=== PATIENT | male | born 1960 | race Caucasian/White ===

== ENCOUNTER 2021-10-11 09:37 | Inpatient (IN) ==
[2021-10-11 10:42] LABS: Basophils % 0.5 %; Eosinophils # 0.1 K/mcL (0.0-0.6); Eosinophils % 1.9 %; Hematocrit 49.3 % (37.5-50.1); Hemoglobin 15.7 g/dL (12.9-16.9); Immature Granulocytes % 0.2 % (0-4); Lymphocytes # 1.3 K/mcL (0.6-4.6); Lymphocytes % 21.8 %; Mean Corpuscular HGB Conc 31.8 g/dL (31.6-35.5); Mean Corpuscular Hemoglobin 29.4 pg (28.0-33.3); Mean Corpuscular Volume 92.3 fL (83.0-100.0); Mean Platelet Volume 12.2 fL (9.4-12.4); Monocytes # 0.5 K/mcL (0.0-1.3); Monocytes % 8.3 %; Neutrophils # 4.2 K/mcL (1.6-8.9); Platelet Count 120 K/mcL (140-400); Red Blood Count 5.34 M/mcL (4.19-5.50); Red Cell Distribution Width 14.5 % (11.5-14.5); Segmented Neutrophils % 67.3 %; White Blood Count 6.2 K/mcL (4.3-11.1)
[2021-10-11 11:01] LABS: BUN/Creatinine Ratio 23 (6-26); Blood Urea Nitrogen 26 mg/dL (8-23); Calcium 8.7 mg/dL (8.6-10.3); Carbon Dioxide 27 mEq/L (23-29); Chloride 105 mEq/L (98-107); Glucose 146 mg/dL (70-105); Osmolality,Calculated 299 (280-300); Potassium 3.9 mEq/L (3.5-5.1); Sodium 141 mEq/L (136-145); eGFR For African Americans > 60 (> 60); eGFR For Non-African Americans > 60 (> 60)
[2021-10-11 11:09] LABS: Troponin I 0.11 ng/mL (< 0.04)
[2021-10-11] MEDS ORDERED: Furosemide 40 MG/4 ML VIAL IVP ONE (11:09)
[2021-10-11] MEDS ORDERED: Iopamidol - 370 500 ML MLS IVP ONE (11:13)
[2021-10-11] MEDS ORDERED: Metoprolol XL (24 HR) Succ 25 MG TAB.ER.24H PO ONE (13:09)
[2021-10-11] MEDS ORDERED: Naloxone 0.4 MG/ML INJ IVP PRN (14:11)
[2021-10-11] MEDS ORDERED: *HR* Heparin 5,000 UNIT/ML VIAL IVP PRN ×2 (14:15)
[2021-10-11] MEDS ORDERED: *HR* Heparin 5,000 UNIT/ML VIAL IVP ONE (14:15)
[2021-10-11] MEDS ORDERED: Perflutren Lipid Microsphere 1.3 ML in 0.9 % Sodium Chloride 8.7 ML IVP PRN (14:16)
[2021-10-11] MEDS ORDERED: Aspirin 325 MG TABLET PO ONE (14:17)
[2021-10-11] MEDS ORDERED: *HR* Metoprolol 5 MG/5 ML VIAL IVP PRN (14:35)
[2021-10-11 16:56] LABS: Hematocrit 49.6 % (37.5-50.1); Hemoglobin 15.7 g/dL (12.9-16.9); Mean Corpuscular HGB Conc 31.7 g/dL (31.6-35.5); Mean Corpuscular Hemoglobin 29.5 pg (28.0-33.3); Mean Corpuscular Volume 93.1 fL (83.0-100.0); Mean Platelet Volume 11.9 fL (9.4-12.4); Platelet Count 122 K/mcL (140-400); Red Blood Count 5.33 M/mcL (4.19-5.50); Red Cell Distribution Width 14.6 % (11.5-14.5); White Blood Count 7.3 K/mcL (4.3-11.1)
[2021-10-11] MEDS: Heparin 25,000UNIT/250ML 1/2NS 25,000 UNIT/250 ML IV.SOLN IVC SCH (16:56)
[2021-10-11] MEDS: Metoprolol XL (24 HR) Succ 25 MG TAB.ER.24H PO SCH (16:56)
[2021-10-11 17:04] LABS: Heparin anti-factor XA UFH < 0.04 IU/mL (0.30-0.70); INR 1.3; Prothrombin Time 14.9 Seconds (9.4-12.1)
[2021-10-11] MEDS: Furosemide 40 MG/4 ML VIAL IVP SCH (21:19)
[2021-10-12] MEDS: Metoprolol XL (24 HR) Succ 25 MG TAB.ER.24H PO SCH ×4 (00:40→23:51)
[2021-10-12 01:13] LABS: Hematocrit 46.9 % (37.5-50.1); Mean Corpuscular Hemoglobin 29.4 pg (28.0-33.3); Platelet Count 114 K/mcL (140-400); Red Cell Distribution Width 14.5 % (11.5-14.5); White Blood Count 6.3 K/mcL (4.3-11.1)
[2021-10-12 01:32] LABS: Alanine Aminotransferase 28 Units/L (7-52); Albumin 3.7 g/dL (3.5-5.7); Albumin/Globulin Ratio 1.7 (1.1-2.2); Alkaline Phosphatase 52 Units/L (34-104); Aspartate Amino Transferase 32 Units/L (13-39); BUN/Creatinine Ratio 20 (6-26); Bilirubin,Total 2.2 mg/dL (0.3-1.0); Blood Urea Nitrogen 24 mg/dL (8-23); Calcium 8.6 mg/dL (8.6-10.3); Carbon Dioxide 32 mEq/L (23-29); Chloride 101 mEq/L (98-107); Globulin 2.2 g/dL (2.4-3.5); Glucose 115 mg/dL (70-105); Magnesium 2.3 mg/dL (1.6-2.6); Osmolality,Calculated 295 (280-300); Phosphorous 4.3 mg/dL (2.7-4.5); Potassium 3.6 mEq/L (3.5-5.1); Sodium 140 mEq/L (136-145); Total Protein 5.9 g/dL (6.4-8.9); eGFR For African Americans > 60 (> 60); eGFR For Non-African Americans > 60 (> 60)
[2021-10-12] MEDS: *HR* Metoprolol 5 MG/5 ML VIAL IVP PRN ×4 (03:50→13:53)
[2021-10-12] MEDS: Furosemide 40 MG/4 ML VIAL IVP SCH ×2 (08:36→21:55)
[2021-10-12] MEDS: Aspirin 81 MG TAB.CHEW PO SCH (08:36)
[2021-10-12] MEDS ORDERED: Furosemide 40 MG/4 ML VIAL IVP SCH (09:00)
[2021-10-12] MEDS ORDERED: Amiodarone Premix 360 MG/200 ML BAG IVC ONE (10:33)
[2021-10-12] MEDS ORDERED: Amiodarone Premix 150 MG/100 ML BAG IVPB ONE (10:33)
[2021-10-12] MEDS: Heparin 25,000UNIT/250ML 1/2NS 25,000 UNIT/250 ML IV.SOLN IVC SCH (12:03)
[2021-10-12] MEDS: Amiodarone Premix 360 MG/200 ML BAG IVC SCH (16:29)
[2021-10-13] MEDS: Amiodarone Premix 360 MG/200 ML BAG IVC SCH (04:10)
[2021-10-13] MEDS: Heparin 25,000UNIT/250ML 1/2NS 25,000 UNIT/250 ML IV.SOLN IVC SCH (04:29)
[2021-10-13] MEDS: Metoprolol XL (24 HR) Succ 25 MG TAB.ER.24H PO SCH ×2 (08:38→20:31)
[2021-10-13] MEDS: Aspirin 81 MG TAB.CHEW PO SCH (08:38)
[2021-10-13] MEDS: Furosemide 40 MG/4 ML VIAL IVP SCH (08:38)
[2021-10-13] MEDS ORDERED: Lidocaine Viscous Oral Soln 15 ML SOLUTION MM PRN (10:59)
[2021-10-13] MEDS ORDERED: 0.9 % Sodium Chloride 500 ML IVC ONE (11:00)
[2021-10-13] MEDS ORDERED: *HR* Vasopressin 20 UNIT/ML VIAL ONE (11:35)
[2021-10-13] MEDS ORDERED: *HR* Rocuronium Bromide 50 MG/5 ML VIAL ONE (11:35)
[2021-10-13 11:41] LABS: Hematocrit 49.4 % (37.5-50.1); Hemoglobin 15.9 g/dL (12.9-16.9); Mean Corpuscular HGB Conc 32.2 g/dL (31.6-35.5); Mean Corpuscular Hemoglobin 29.4 pg (28.0-33.3); Mean Corpuscular Volume 91.5 fL (83.0-100.0); Mean Platelet Volume 12.5 fL (9.4-12.4); Platelet Count 122 K/mcL (140-400); Red Cell Distribution Width 14.8 % (11.5-14.5); White Blood Count 8.7 K/mcL (4.3-11.1)
[2021-10-13 11:59] LABS: Calcium 8.7 mg/dL (8.6-10.3); Potassium 3.8 mEq/L (3.5-5.1)
[2021-10-13] MEDS: Apixaban 5 MG TABLET PO SCH (20:30)
[2021-10-13] MEDS: *HR* Amiodarone 200 MG TABLET PO SCH (20:31)
[2021-10-14 01:52] LABS: Hematocrit 47.4 % (37.5-50.1); Hemoglobin 15.1 g/dL (12.9-16.9); Mean Corpuscular HGB Conc 31.9 g/dL (31.6-35.5); Mean Corpuscular Hemoglobin 29.2 pg (28.0-33.3); Mean Corpuscular Volume 91.7 fL (83.0-100.0); Mean Platelet Volume 12.1 fL (9.4-12.4); Platelet Count 145 K/mcL (140-400); Red Blood Count 5.17 M/mcL (4.19-5.50); Red Cell Distribution Width 14.9 % (11.5-14.5); White Blood Count 8.9 K/mcL (4.3-11.1)
[2021-10-14 02:16] LABS: Calcium 8.7 mg/dL (8.6-10.3); Potassium 3.7 mEq/L (3.5-5.1)
[2021-10-14] MEDS: Apixaban 5 MG TABLET PO SCH ×2 (08:40→20:26)
[2021-10-14] MEDS: *HR* Amiodarone 200 MG TABLET PO SCH ×2 (08:40→20:26)
[2021-10-14] MEDS: Metoprolol XL (24 HR) Succ 25 MG TAB.ER.24H PO SCH ×2 (08:40→20:25)
[2021-10-14] MEDS: Aspirin 81 MG TAB.CHEW PO SCH (08:40)
[2021-10-14] MEDS ORDERED: Apixaban 5 MG TABLET PO SCH (09:00)
[2021-10-14] MEDS: 0.9 % Sodium Chloride 500 ML IVC SCH ×2 (12:13→17:14)
[2021-10-15] MEDS: 0.9 % Sodium Chloride 500 ML IVC SCH ×2 (01:20→09:16)
[2021-10-15 03:29] LABS: Hematocrit 48.7 % (37.5-50.1); Hemoglobin 15.3 g/dL (12.9-16.9); Mean Corpuscular HGB Conc 31.4 g/dL (31.6-35.5); Mean Corpuscular Hemoglobin 29.1 pg (28.0-33.3); Mean Corpuscular Volume 92.6 fL (83.0-100.0); Mean Platelet Volume 12.2 fL (9.4-12.4); Platelet Count 122 K/mcL (140-400); Red Blood Count 5.26 M/mcL (4.19-5.50); Red Cell Distribution Width 14.8 % (11.5-14.5); White Blood Count 8.7 K/mcL (4.3-11.1)
[2021-10-15 04:22] LABS: Calcium 8.6 mg/dL (8.6-10.3); Potassium 4.1 mEq/L (3.5-5.1)
[2021-10-15] MEDS: Aspirin 81 MG TAB.CHEW PO SCH (07:50)
[2021-10-15] MEDS: Apixaban 5 MG TABLET PO SCH ×2 (07:50→19:48)
[2021-10-15] MEDS: *HR* Amiodarone 200 MG TABLET PO SCH ×2 (07:50→19:48)
[2021-10-15] MEDS: Metoprolol XL (24 HR) Succ 25 MG TAB.ER.24H PO SCH ×2 (07:51→19:48)
[2021-10-16 04:47] LABS: Hematocrit 47.2 % (37.5-50.1); Mean Corpuscular HGB Conc 31.8 g/dL (31.6-35.5); Mean Corpuscular Hemoglobin 29.5 pg (28.0-33.3); Mean Corpuscular Volume 92.7 fL (83.0-100.0); Mean Platelet Volume 12.5 fL (9.4-12.4); Platelet Count 131 K/mcL (140-400); Red Blood Count 5.09 M/mcL (4.19-5.50); Red Cell Distribution Width 14.8 % (11.5-14.5); White Blood Count 7.8 K/mcL (4.3-11.1)
[2021-10-16 05:08] LABS: Potassium 4.3 mEq/L (3.5-5.1)
[2021-10-16] MEDS: Aspirin 81 MG TAB.CHEW PO SCH (08:33)
[2021-10-16] MEDS: Metoprolol XL (24 HR) Succ 25 MG TAB.ER.24H PO SCH ×2 (08:33→20:15)
[2021-10-16] MEDS: *HR* Amiodarone 200 MG TABLET PO SCH ×2 (08:33→20:15)
[2021-10-16] MEDS: Apixaban 5 MG TABLET PO SCH ×2 (08:33→20:15)
[2021-10-16] MEDS: Albumin 25% 12.5gm/50mL 12.5 GM/50 ML IV.SOLN IVPB SCH ×2 (15:28→23:34)
[2021-10-16] MEDS: Furosemide 20 MG TABLET PO SCH (17:21)
[2021-10-17 04:26] LABS: Hematocrit 44.9 % (37.5-50.1); Hemoglobin 14.1 g/dL (12.9-16.9); Mean Corpuscular HGB Conc 31.4 g/dL (31.6-35.5); Mean Corpuscular Hemoglobin 29.2 pg (28.0-33.3); Mean Platelet Volume 12.7 fL (9.4-12.4); Platelet Count 119 K/mcL (140-400); Red Blood Count 4.83 M/mcL (4.19-5.50); Red Cell Distribution Width 14.9 % (11.5-14.5)
[2021-10-17 04:32] LABS: Potassium 3.9 mEq/L (3.5-5.1)
[2021-10-17] MEDS: Furosemide 20 MG TABLET PO SCH (05:27)
[2021-10-17] MEDS: Apixaban 5 MG TABLET PO SCH ×2 (08:58→19:48)
[2021-10-17] MEDS: Metoprolol XL (24 HR) Succ 25 MG TAB.ER.24H PO SCH ×2 (08:58→19:49)
[2021-10-17] MEDS: Aspirin 81 MG TAB.CHEW PO SCH (08:58)
[2021-10-17] MEDS: *HR* Amiodarone 200 MG TABLET PO SCH ×2 (08:59→19:49)
[2021-10-17] MEDS: Albumin 25% 12.5gm/50mL 12.5 GM/50 ML IV.SOLN IVPB SCH ×2 (08:59→16:45)
[2021-10-17] MEDS ORDERED: Bumetanide 1 MG TABLET PO ONE (16:00)
[2021-10-18] MEDS: Albumin 25% 12.5gm/50mL 12.5 GM/50 ML IV.SOLN IVPB SCH (00:06)
[2021-10-18 02:56] LABS: Hemoglobin 14.7 g/dL (12.9-16.9); Mean Corpuscular HGB Conc 31.3 g/dL (31.6-35.5); Mean Corpuscular Hemoglobin 29.2 pg (28.0-33.3); Mean Corpuscular Volume 93.3 fL (83.0-100.0); Mean Platelet Volume 12.1 fL (9.4-12.4); Platelet Count 125 K/mcL (140-400); Red Blood Count 5.04 M/mcL (4.19-5.50); White Blood Count 9.1 K/mcL (4.3-11.1)
[2021-10-18 03:13] LABS: Calcium 9.4 mg/dL (8.6-10.3); Potassium 4.5 mEq/L (3.5-5.1)
[2021-10-18] MEDS ORDERED: Bumetanide 1 MG TABLET PO SCH (08:15)
[2021-10-18] MEDS: Metoprolol XL (24 HR) Succ 25 MG TAB.ER.24H PO SCH ×2 (09:43→20:53)
[2021-10-18] MEDS: *HR* Amiodarone 200 MG TABLET PO SCH ×2 (09:43→20:53)
[2021-10-18] MEDS: Apixaban 5 MG TABLET PO SCH ×2 (09:43→20:53)
[2021-10-18] MEDS: Aspirin 81 MG TAB.CHEW PO SCH (09:43)
[2021-10-18] MEDS: Bumetanide 1 MG/4 ML VIAL IVP SCH ×2 (09:56→16:55)
[2021-10-19 03:05] LABS: Hematocrit 46.6 % (37.5-50.1); Mean Corpuscular HGB Conc 32.2 g/dL (31.6-35.5); Mean Corpuscular Hemoglobin 29.5 pg (28.0-33.3); Mean Corpuscular Volume 91.7 fL (83.0-100.0); Mean Platelet Volume 11.7 fL (9.4-12.4); Platelet Count 144 K/mcL (140-400); Red Blood Count 5.08 M/mcL (4.19-5.50); Red Cell Distribution Width 14.8 % (11.5-14.5); White Blood Count 8.5 K/mcL (4.3-11.1)
[2021-10-19 03:26] LABS: BUN/Creatinine Ratio 18 (6-26); Blood Urea Nitrogen 25 mg/dL (8-23); Calcium 9.2 mg/dL (8.6-10.3); Carbon Dioxide 32 mEq/L (23-29); Chloride 101 mEq/L (98-107); Glucose 179 mg/dL (70-105); Osmolality,Calculated 301 (280-300); Potassium 3.7 mEq/L (3.5-5.1); Sodium 141 mEq/L (136-145); eGFR For African Americans > 60 (> 60); eGFR For Non-African Americans 51 (> 60)
[2021-10-19] MEDS: Apixaban 5 MG TABLET PO SCH ×2 (09:12→20:45)
[2021-10-19] MEDS: Metoprolol XL (24 HR) Succ 25 MG TAB.ER.24H PO SCH ×2 (09:12→20:45)
[2021-10-19] MEDS: *HR* Amiodarone 200 MG TABLET PO SCH ×2 (09:12→20:44)
[2021-10-19] MEDS: Bumetanide 1 MG/4 ML VIAL IVP SCH (09:12)
[2021-10-19] MEDS: Aspirin 81 MG TAB.CHEW PO SCH (09:12)
[2021-10-19] MEDS ORDERED: Albumin 25% 25gram/100mL 25 GM/100 ML IV.SOLN IVPB ONE (10:01)
[2021-10-19] MEDS ORDERED: *HR* Metoprolol 5 MG/5 ML VIAL IVP PRN (10:01)
[2021-10-19] MEDS ORDERED: Metoprolol XL (24 HR) Succ 25 MG TAB.ER.24H PO ONE (10:01)
[2021-10-19] MEDS: Bumetanide 1 MG TABLET PO SCH (17:24)
[2021-10-20] MEDS: Bumetanide 1 MG TABLET PO SCH (05:16)
[2021-10-20 06:09] LABS: Hemoglobin 14.6 g/dL (12.9-16.9); Mean Corpuscular HGB Conc 31.7 g/dL (31.6-35.5); Mean Corpuscular Hemoglobin 29.2 pg (28.0-33.3); Mean Platelet Volume 11.5 fL (9.4-12.4); Platelet Count 153 K/mcL (140-400); Red Cell Distribution Width 14.8 % (11.5-14.5); White Blood Count 8.2 K/mcL (4.3-11.1)
[2021-10-20 06:49] LABS: Potassium 3.9 mEq/L (3.5-5.1)
[2021-10-20] MEDS ORDERED: 0.9 % Sodium Chloride 1,000 ML IVC SCH (07:30)
[2021-10-20] MEDS: Metoprolol XL (24 HR) Succ 25 MG TAB.ER.24H PO SCH ×2 (08:40→19:46)
[2021-10-20] MEDS: Aspirin 81 MG TAB.CHEW PO SCH (08:40)
[2021-10-20] MEDS: Apixaban 5 MG TABLET PO SCH ×2 (08:40→19:46)
[2021-10-20] MEDS: *HR* Amiodarone 200 MG TABLET PO SCH ×2 (08:40→19:47)
[2021-10-20 12:53] LABS: BUN/Creatinine Ratio 22 (6-26); Blood Urea Nitrogen 27 mg/dL (8-23); Calcium 9.1 mg/dL (8.6-10.3); Carbon Dioxide 28 mEq/L (23-29); Chloride 103 mEq/L (98-107); Glucose 111 mg/dL (70-105); Osmolality,Calculated 296 (280-300); Potassium 3.5 mEq/L (3.5-5.1); Sodium 140 mEq/L (136-145); eGFR For African Americans > 60 (> 60); eGFR For Non-African Americans 59 (> 60)
[2021-10-21 04:12] LABS: BUN/Creatinine Ratio 23 (6-26); Blood Urea Nitrogen 30 mg/dL (8-23); Calcium 8.7 mg/dL (8.6-10.3); Carbon Dioxide 26 mEq/L (23-29); Chloride 102 mEq/L (98-107); Glucose 182 mg/dL (70-105); Osmolality,Calculated 295 (280-300); Potassium 3.4 mEq/L (3.5-5.1); Sodium 137 mEq/L (136-145); eGFR For African Americans > 60 (> 60); eGFR For Non-African Americans 54 (> 60)
[2021-10-21] MEDS: Aspirin 81 MG TAB.CHEW PO SCH (08:27)
[2021-10-21] MEDS: Apixaban 5 MG TABLET PO SCH ×2 (08:28→19:57)
[2021-10-21] MEDS: *HR* Amiodarone 200 MG TABLET PO SCH ×2 (08:28→19:57)
[2021-10-21] MEDS: Metoprolol XL (24 HR) Succ 25 MG TAB.ER.24H PO SCH (08:28)
[2021-10-21] MEDS ORDERED: Metoprolol XL (24 HR) Succ 25 MG TAB.ER.24H PO ONE (11:00)
[2021-10-21] MEDS: Metoprolol XL (24 HR) Succ 50 MG TAB.ER.24H PO SCH (19:57)
[2021-10-21] MEDS ORDERED: Metoprolol XL (24 HR) Succ 25 MG TAB.ER.24H PO SCH (21:00)
[2021-10-22 01:53] LABS: Hematocrit 47.2 % (37.5-50.1); Hemoglobin 15.1 g/dL (12.9-16.9); Mean Corpuscular Hemoglobin 29.2 pg (28.0-33.3); Mean Corpuscular Volume 91.3 fL (83.0-100.0); Mean Platelet Volume 11.4 fL (9.4-12.4); Platelet Count 181 K/mcL (140-400); Red Blood Count 5.17 M/mcL (4.19-5.50); Red Cell Distribution Width 14.8 % (11.5-14.5); White Blood Count 9.3 K/mcL (4.3-11.1)
[2021-10-22 02:17] LABS: BUN/Creatinine Ratio 24 (6-26); Blood Urea Nitrogen 31 mg/dL (8-23); Calcium 8.7 mg/dL (8.6-10.3); Carbon Dioxide 25 mEq/L (23-29); Chloride 103 mEq/L (98-107); Glucose 151 mg/dL (70-105); Magnesium 2.2 mg/dL (1.6-2.6); Osmolality,Calculated 293 (280-300); Sodium 137 mEq/L (136-145); eGFR For African Americans > 60 (> 60); eGFR For Non-African Americans 56 (> 60)
[2021-10-22] MEDS: Bumetanide 1 MG TABLET PO SCH (06:14)
[2021-10-22] MEDS: Apixaban 5 MG TABLET PO SCH (08:42)
[2021-10-22] MEDS: Aspirin 81 MG TAB.CHEW PO SCH (08:42)
[2021-10-22] MEDS: *HR* Amiodarone 200 MG TABLET PO SCH (08:42)
[2021-10-22] MEDS: Metoprolol XL (24 HR) Succ 50 MG TAB.ER.24H PO SCH (08:42)
[2021-10-22] MEDS ORDERED: lisinopriL 5 MG TABLET PO SCH (09:00)
[2021-10-22] MEDS ORDERED: Bumetanide 1 MG TABLET PO SCH ×2 (11:30→18:00)
[2021-10-22 11:43] VITALS: BP 152/100; PULSE 88; TEMP 97; O2SAT 94
[2021-10-22] MEDS ORDERED: Bumetanide 1 MG/4 ML VIAL IVP SCH (17:00)
== END 2021-10-22 16:15 | disposition home or self-care (01) | DRG 280 ==
LOC: EMEROOARM 09:37 → 3BNU 09:37 → 2NENU 09:37 → SUATTDRO 10-13 15:22
PROVIDERS: ADMIT Internal Medicine; ATTEND Internal Medicine